=== PATIENT | female | born 1965 | race Caucasian/White ===

== ENCOUNTER 2020-03-08 09:24 | Emergency (ER) | payer OTHER, SELFPAY ==
--- NOTE | ~2020-03-08 | XR_ITS ---
EXAMINATION: XR chest 2V DATE: 03/08/2020 10:09 INDICATION: Shortness of breath TECHNIQUE: PA and lateral views of the chest were obtained. COMPARISON: None FINDINGS: Very small bilateral pleural effusions with blunting at the posterior sulci and left costophrenic ang le. No focal airspace disease, pulmonary edema or pneumothorax.. The cardiomediastinal silhouette is normal. Mild anterior wedging of a midthoracic vertebra, likely T8. IMPRESSION: 1. Very small bilateral pleural effusions. Reviewed, dictated and finalized at location A.
[2020-03-08 09:27] VITALS: BP 134/77; PULSE 103; RESP 14; TEMP 36.7; O2SAT 99
--- NOTE | 2020-03-08 09:37 | ECG_ITS ---
Measurements Intervals [place] Rate: 106 P: 51 MD: 171 QRS: 6 QRSD: 78 T: 92 QT: 316 QTc: 420 Interpretive Statements SINUS TACHYCARDIA NONSPECIFIC ST & T-WAVE ABNORMALITY- ANTEROLAT/LAT LEADS ABNORMAL ECG Electronically Signed On 03-08-2020 10:08:46 CDT by Pierce Floyd D.O.
[2020-03-08 09:44] VITALS: PULSE 98; O2SAT 99
[2020-03-08 10:04] LABS: Basophils Percent Auto 0.4 % (0.2-1.2); Eosinophils Percent Auto 0.1 % (0-4.4); Hematocrit 44.5 % (37.0-47.0); Hemoglobin 14.7 g/dL (12.0-15.0); Immature Granulocyte Absolute 0.03 K/mm3 (0.00-0.031); Immature Granulocyte Percent A 0.4 % (0-0.5); Lymphocytes Absolute Auto 1.14 K/mm3 (0.9-3.2); Lymphocytes Percent Auto 14.1 % (18.3-44.2); Mean Corpuscular Hemoglobin 28.4 pg (26-34); Mean Corpuscular Volume 85.9 fl (80-100); Mean Platelet Volume 9.8 fl (7.4-10.4); Monocytes Absolute Auto 0.4 K/mm3 (0.1-0.6); Monocytes Percent Auto 5.1 % (2.6-8.5); Neutrophils Absolute Auto 6.5 K/mm3 (1.3-6.7); Neutrophils Percent Auto 79.9 % (45.5-73.1); Platelet Count Result 244 k/mm3 (150-375); Red Blood Count 5.18 M/mm3 (4.2-5.4); Red Cell Distribution Width 12.6 % (11.5-14.5); White Blood Count 8.1 K/mm3 (4.5-10.0)
[2020-03-08 10:16] LABS: Blood Urea Nitrogen 14 mg/dL (7-17); Calcium 9.4 mg/dL (8.4-10.2); Carbon Dioxide 26 mmol/L (22-30); Chloride 105 mmol/L (98-107); Estimated CRCL calculation 70 ml/min; Estimated Glomerular Filt Rate > 60; Glucose 105 mg/dL (65-105); Potassium 4.2 mmol/L (3.4-5.0); Sodium 139 mmol/L (137-145)
--- NOTE | 2020-03-08 11:24 | ED.SOB ---
HPI - SOB/Dyspnea General Chief Complaint: Shortness of Breath/Dyspnea Stated Complaint: SOB Time Seen by Provider: 03/08/20 09:37 Source: patient Mode of arrival: ambulatory Limitations: no limitations History of Present Illness HPI Narrative: 54-year-old with a history of dyslipidemia, depression here with complaints of shortness of breath for past few weeks. Patient states that she was admitted to [facility] well as [facility] in [place] where she had cardiac cath done. She was recently discharged from the hospital however she states that she is unable to breathe. She denies cough, fever or chills. She states that she cannot go back to work on Wednesday. Patient also mentions that while she was in the hospital they said they could be having underlying COPD however she cannot get outpatient testing because of the present situation. MD elicited complaint: shortness of breath Severity: moderate Exacerbating factors: nothing Relieving factors: nothing Associated symptoms: denies other symptoms Related Data Home oxygen amount: none Home Medications Medication Instructions Recorded Confirmed albuterol sulfate INHALATION 03/08/20 cetirizine 10 mg PO DAILY 03/08/20 clonazepam 03/08/20 dicyclomine mg 03/08/20 fluticasone propion-salmeterol INHALATION 03/08/20 [Advair HFA] propranolol 03/08/20 rosuvastatin mg 03/08/20 sertraline mg 03/08/20 Review of Systems Review of Systems: All systems reviewed & are unremarkable except as noted in HPI and below Constitutional: Constitutional: Reports no additional constitutional complaints Eyes: Eyes: Reports no additional eye complaints ENT: Reports system reviewed and no additional complaints, except as documented Cardiovascular: Cardiovascular: Reports no additional cardiovascular complaints Respiratory: Respiratory: Reports as per HPI Gastrointestinal: Gastrointestinal: Reports no additional gastrointestinal complaints Musculoskeletal: Musculoskeletal: Reports no additional musculoskeletal complaints Neurologic: Reports system reviewed and no additional complaints, except as documented Psychiatric: Psychiatric: Reports no additional psychiatric complaints [facility] Family History Family History (Updated 06/12/16 @ 23:19 by DOCTOR UNKNOWN) Mother Hypertension Family history of diabetes mellitus in first degree relative Family history of coronary artery disease Father Family history of diabetes mellitus in first degree relative Family history of coronary artery disease Grandparent Family history of malignant neoplasm of esophagus Social History Social History Alcohol intake: never Gender identity (if verbalized by the patient): Female Exam Narrative: Exam Narrative: GENERAL: Well-appearing, well-nourished, and in no acute distress. HEAD: Normocephalic, atraumatic. EYES: PERRLA and EOMI. ENT: Nares clear, no rhinorrhea or epistaxis. Mucous membranes moist. NECK: Supple. CHEST: Clear to auscultation. No respiratory distress. HEART: Regular rate and rhythm. No murmur heard. Normal peripheral pulses. ABDOMEN: Soft, normal active bowel sounds. EXTREMITIES: Normal range of motion. No edema. SKIN: Warm, dry, no rash. NEURO: No focal deficits. Alert and oriented x3. PSYCH: Normal mood and affect. Course Course Emergency Course: I have reviewed the records from her previous admission from other hospitals. I have explained to her in detail about her present labs and chest x-ray. 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 Vital Signs Vital signs: Vital Signs Temperature 36.7 C 03/08/20 09:27 Pulse Rate 103 H 03/08/20 09:27 Respiratory Rate 14 03/08/20 09:27 Blood Pressure 134/77 03/08/20 09:27 Pulse Oximetry 99 03/08/20 09:27 Temperature 36.7 C 03/08/20 09:27 Pulse Rate 98 03/08/20 09:44 Respiratory Rate 14 03/08/20 09:27 Blood Pressure 134/7
[2020-03-08 11:29] VITALS: BP 112/68; PULSE 89; RESP 11; TEMP 36.4; O2SAT 99
[2020-03-08 12:28] VITALS: BP 103/62; PULSE 83; RESP 18; O2SAT 99
== END 2020-03-08 12:30 | disposition home or self-care (01) ==
PROVIDERS: Emergency Provider Family Medicine; PCP Family Medicine
DX: R06.02 Shortness of breath (principal); E78.5 Hyperlipidemia, unspecified; F32.9 Major depressive disorder, single episode, unspecified; R00.0 Tachycardia, unspecified; R94.31 Abnormal electrocardiogram [ECG] [EKG]
CPT/HCPCS: 36415; 71046; 80048; 85025; 93005; 99284